=== PATIENT | male | born 1950 | race Caucasian/White ===

== ENCOUNTER → 2022-02-03 | Outpatient (CLI) | payer MEDICARE | LOC: HEART CORB 10:59 | DX: R94.31 Abnormal electrocardiogram [ECG] [EKG] (principal); M25.473 Effusion, unspecified ankle; F10.11 Alcohol abuse, in remission; R06.02 Shortness of breath; I10 Essential (primary) hypertension; I08.8 Other rheumatic multiple valve diseases | CPT/HCPCS: 93306 ==